=== PATIENT | male | born 1940 | race Caucasian/White ===

== ENCOUNTER 2016-10-13 11:54 | Outpatient (CLI) | payer MEDICARE, BC ==
[~2016-10-13] VITALS: Ht 180.3 cm; Wt 103.0 kg
[~2016-10-13 11:54] MED LIST: ASPIR-LOW81 MG PO; ASPIRIN 32325 MG/TAB PO; ASPIRIN 81M81 MG/TA2 PO; CEPHALEXIN500 M1 PO; COLESTID 1GM1 G PO; KETOROLAC10 MG; LISINOPRIL10 MG PO; LOPRESSOR 225 MG/TAB PO; LORTAB 5/500 501 TAB PO; NAPROXEN ER500 MG PO; NITROSTAT0.4 MG/TAB SL; NORCO 325 MG-7.1 TAB PO; NORVASC 5MG5 MG/TAB PO; OXYCONTIN 20MG20 MG; PRAVACHOL80 MG PO; PREDNISONE20 MG PO; PRILOSEC 20MG20 MG PO; PRINIVIL2.5 MG PO; TOPROL XL 50MG50 MG PO; TYLENOL 8 HR PO; TYLENOL ARTHRI650 M1 PO; ULTRAM 50MG TAB50 MG PO; UNKNOWN B/P MED; ZITHROMAX Z PA250 MG PO; ZOLOFT 50MG50 MG PO; ZOLOFT50 MG PO; bp med
[2016-10-13 12:21] VITALS: BP 144/77; PULSE 46
[2016-10-13 13:27] VITALS: BP 152/86; PULSE 48
== END 2016-10-13 14:51 | disposition home or self-care (01) ==
LOC: COL.RAD 11:54
DX: M51.26 Other intervertebral disc displacement, lumbar region (principal); M25.78 Osteophyte, vertebrae; M54.32 Sciatica, left side
CPT/HCPCS: Q9965

== ENCOUNTER → 2016-10-18 | Outpatient (CLI) | payer MEDICARE, BC | LOC: MHCPAIN 08:59 | DX: G89.29 Other chronic pain (principal); M47.27 Other spondylosis with radiculopathy, lumbosacral region; M96.1 Postlaminectomy syndrome, not elsewhere classified; M48.07 Spinal stenosis, lumbosacral region | CPT/HCPCS: G0463 ==

== ENCOUNTER → 2016-10-21 | Outpatient (CLI) | payer MEDICARE, BC | LOC: MHCPAIN 08:47 | DX: M47.27 Other spondylosis with radiculopathy, lumbosacral region (principal) | CPT/HCPCS: J1040; J1100; Q9967 ==

== ENCOUNTER → 2016-11-22 | Outpatient (CLI) | payer MEDICARE, BC | LOC: MHCPAIN 07:51 | DX: G89.29 Other chronic pain (principal); M47.817 Spondylosis without myelopathy or radiculopathy, lumbosacral region; M54.16 Radiculopathy, lumbar region; M53.3 Sacrococcygeal disorders, not elsewhere classified; M96.1 Postlaminectomy syndrome, not elsewhere classified | CPT/HCPCS: G0463 ==

== ENCOUNTER → 2016-11-25 | Outpatient (CLI) | payer MEDICARE, BC | LOC: MHCPAIN 09:44 | DX: M47.817 Spondylosis without myelopathy or radiculopathy, lumbosacral region (principal); M53.3 Sacrococcygeal disorders, not elsewhere classified | CPT/HCPCS: G0260; J1040; Q9967 ==

== ENCOUNTER → 2016-12-21 | Outpatient (CLI) | payer MEDICARE, BC | LOC: MHCPAIN 08:26 | DX: G89.29 Other chronic pain (principal); M47.817 Spondylosis without myelopathy or radiculopathy, lumbosacral region; M54.16 Radiculopathy, lumbar region; M53.3 Sacrococcygeal disorders, not elsewhere classified; M96.1 Postlaminectomy syndrome, not elsewhere classified; Z87.891 Personal history of nicotine dependence | CPT/HCPCS: G0463 ==

== ENCOUNTER → 2016-12-23 | Outpatient (CLI) | payer MEDICARE, BC | LOC: MHCPAIN 07:30 | DX: M41.06 Infantile idiopathic scoliosis, lumbar region (principal) ==

== ENCOUNTER → 2016-12-29 | Outpatient (CLI) | payer MEDICARE, BC | LOC: MHCPAIN 08:59 | DX: G89.29 Other chronic pain (principal); M47.817 Spondylosis without myelopathy or radiculopathy, lumbosacral region; M54.16 Radiculopathy, lumbar region; M53.3 Sacrococcygeal disorders, not elsewhere classified; M96.1 Postlaminectomy syndrome, not elsewhere classified | CPT/HCPCS: G0463 ==

== ENCOUNTER 2017-02-01 09:15 | Outpatient (RCR) | payer MEDICARE, BC | END 2017-02-03 13:55 | disposition still patient (30) | LOC: WSPT 09:15 | DX: M96.1 Postlaminectomy syndrome, not elsewhere classified (principal) | CPT/HCPCS: G8978-GP; G8979-GP ==

== ENCOUNTER 2017-11-01 07:49 | Inpatient (IN) | payer MEDICARE, BC ==
[~2017-11-01] VITALS: Ht 180.3 cm; Wt 102.5 kg
[2017-11-01] VITALS (485 sets, daily range): BP systolic 123–141; BP diastolic 80–87; PULSE 55–64; TEMP 97.4–97.9; O2SAT 78–100
[~2017-11-01 07:49] MED LIST changes: -PRINIVIL2.5 MG PO; +PRINIVIL20 MG PO; -TOPROL XL 50MG50 MG PO; +TYLENOL 500MG500 MG PO; -TYLENOL 8 HR PO
[2017-11-01 08:38] LABS: BASO % 0.4 % (0.0-2.0); EOS # 0.1 (0.0-0.7); EOS % 1.1 % (0-4.0); GRAN # 7.8 (1.4-6.5); GRAN % 71.3 % (42.2-75.2); HEMATOCRIT 41.1 % (42.0-52.0); HEMOGLOBIN 13.9 g/dl (13.5-18.0); LYMPH # 2.1 (1.2-3.4); LYMPH % 19.2 % (20.0-51.0); MEAN CELL VOLUME 85 fl (80.0-100.0); MEAN CORPUSCULAR HEMOGLOBIN 29 pg (27.0-31.0); MEAN CORPUSCULAR HGB CONC 34 g/dl (33.0-37.0); MEAN PLATELET VOLUME 8.2 fl (7.4-10.4); MONO # 0.9 (0.1-0.6); MONO % 7.8 % (1.7-9.3); PLATELET COUNT 204 K/mm3 (130-400); RED BLOOD COUNT 4.82 M/mm3 (4.20-5.60); REDCELL DISTRIBUTION WIDTH-CV 13.8 % (11.5-14.5)
[2017-11-01 08:40] LABS: ALANINE AMINOTRANSFERASE 22 U/L (21-72); ALBUMIN 4.2 gm/dL (3.5-5.0); ALKALINE PHOSPHATASE 77 U/L (50-136); ANION GAP 13 mmol/L (7-16); AST,SGOT 20 U/L (15-37); BILIRUBIN,TOTAL 0.9 mg/dL (0.0-1.0); BLOOD UREA NITROGEN 11 mg/dL (9-20); C-REACTIVE PROTEIN 4.3 mg/dL (0.0-0.9); CALCIUM 9.3 mg/dL (8.4-10.2); CARBON DIOXIDE 22 mmol/L (22-30); CHLORIDE 105 mmol/L (98-107); CREATININE, serum 0.77 mg/dL (0.66-1.25); GLUCOSE 117 mg/dL (74-106); LIPASE 53 U/L (23-300); POTASSIUM 3.9 mmol/L (3.4-5.0); SODIUM 140 mmol/L (137-145); TOTAL PROTEIN 7.7 gm/dL (6.4-8.2)
[2017-11-01 08:50] LABS: TROPONIN-I < 0.012 ng/mL (0.000-0.034)
[2017-11-01 10:09] LABS: COLLECTION METHOD CLEAN CATCH
[2017-11-01 10:20] LABS: MUCOUS Present /lpf; PH 5 (5-8); SQUAMOUS EPITHELIAL None Seen /hpf; URINE APPEARANCE Clear; URINE BACTERIA None Seen /hpf; URINE BILIRUBIN Negative (NEGATIVE); URINE BLOOD 2+ (NEGATIVE); URINE COLOR Yellow; URINE GLUCOSE Negative (NEGATIVE); URINE KETONE Negative (NEGATIVE); URINE LEUKOCYTE ESTERASE Negative (NEGATIVE); URINE NITRATE Negative (NEGATIVE); URINE PROTEIN(semi-quant) Negative (NEGATIVE); URINE UROBILINOGEN Negative (NEGATIVE)
[2017-11-02] VITALS (8 sets, daily range): BP systolic 133–146; BP diastolic 72–81; PULSE 56–71; TEMP 98; O2SAT 97–99
[2017-11-02 05:33] LABS: BASO % 0.6 % (0.0-2.0); EOS # 0.2 (0.0-0.7); EOS % 2.8 % (0-4.0); GRAN # 3.9 (1.4-6.5); GRAN % 56.6 % (42.2-75.2); HEMATOCRIT 38.8 % (42.0-52.0); HEMOGLOBIN 12.6 g/dl (13.5-18.0); LYMPH # 2.2 (1.2-3.4); LYMPH % 31.6 % (20.0-51.0); MEAN CELL VOLUME 89 fl (80.0-100.0); MEAN CORPUSCULAR HEMOGLOBIN 29 pg (27.0-31.0); MEAN CORPUSCULAR HGB CONC 33 g/dl (33.0-37.0); MEAN PLATELET VOLUME 8.4 fl (7.4-10.4); MONO # 0.6 (0.1-0.6); MONO % 8.1 % (1.7-9.3); PLATELET COUNT 183 K/mm3 (130-400); RED BLOOD COUNT 4.35 M/mm3 (4.20-5.60)
[2017-11-02 05:45] LABS: ALBUMIN 3.3 gm/dL (3.5-5.0); BILIRUBIN,TOTAL 0.6 mg/dL (0.0-1.0); CALCIUM 8.6 mg/dL (8.4-10.2); CREATININE, serum 0.77 mg/dL (0.66-1.25); POTASSIUM 3.7 mmol/L (3.4-5.0); TOTAL PROTEIN 6.2 gm/dL (6.4-8.2)
[2017-11-02] MEDS ORDERED: FLAGYL500 MG PO (12:27)
[2017-11-02] MEDS ORDERED: CIPRO 500MG TA500 MG PO (12:27)
== END 2017-11-02 14:15 | disposition home or self-care (01) | DRG 392 ==
LOC: COL.ER 07:49 → ICU 10:53
PROVIDERS: Emergency Medicine; Internal Medicine
DX: K57.32 Diverticulitis of large intestine without perforation or abscess without bleeding (principal); I25.10 Atherosclerotic heart disease of native coronary artery without angina pectoris; I10 Essential (primary) hypertension; R20.0 Anesthesia of skin; Z95.5 Presence of coronary angioplasty implant and graft; Z87.891 Personal history of nicotine dependence
CPT/HCPCS: 99223-AI; 99239; J0744; J1956; J2405; J3010; J7030

== ENCOUNTER 2018-08-24 13:09 | Inpatient (IN) | payer MEDICARE, BC ==
[~2018-08-24] VITALS: Ht 180.3 cm; Wt 103.3 kg
[~2018-08-24 13:09] MED LIST changes: +CIPRO 500MG TA500 MG PO; +FLAGYL500 MG PO
[2018-09-25] VITALS (10 sets, daily range): BP systolic 107–149; BP diastolic 54–86; PULSE 61–89; TEMP 97.1–98.2
[2018-09-25] MEDS ORDERED: OMEGA-3 1000 MG1 CAP PO (05:58)
--- NOTE | 2018-09-25 10:55 | NUR ---
PATIENT BACK IN ROOM 328 POST OP. VERY DROWSY. VSS. APPEARS TO BE COMFORTABLE. LTK DRESSING IS CD&I WITH AQUACEL AND TECHNOL BRACE INPLACE. TEDS & SCD'S TO BLE. POSITIVE PEDAL PULSES. LAZO TO DEPENDENT DRAINAGE WITH SMALL AMOUNTS OF CLEAR YELLOW URINE NOTED. IV FLUIDS INFUSING INTO LEFT WRIST IV. NO C/O N/V. LIQUIDS AT BEDSIDE. HEAD TO TOE WNL. FAMILY NOW AT BEDSIDE. ORIENTED TO ROOM. CALL LIGHT IN REACH.
--- NOTE | 2018-09-25 11:26 | NUR ---
LATOSHA and SW student met with the patient's , Yvette, to discuss discharge plan. The patient was sleeping. The patient lives in [place] with his . The patient's reports that the patient is independent with ADLs and has a walker. The patient's PCP is Dr. Stanley Coker and he receives his medications at either the [facility] or [facility]. The patient's reports no difficulties obtaining his meds. The patient's DPOA-HC is in EMR. The patient plans to return home with his upon discharge. The patient's reports that she believes the patient has outpatient therapy set up, but is not sure where it will be at. SW to follow up with the patient.
--- NOTE | 2018-09-25 21:00 | NUR ---
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 ASSESSMENT COMPLETE. VS STABLE. UP TO AMBULATE THIS SHIFT USING WALKER. TOLERATED WELL. TECHNOL BRACE IN PLACE WITH CLEAN, DRY AND INTACT AQUACELL DRESSING. CLEAR YELLOW URINE DRAINING TO LAZO. DENIES NEED FOR PAIN MEDICATION AT THIS TIME. ENCOURAGED TO CALL FOR QUESTIONS OR CONCERNS. VERBALIZES UNDERSTANDING. BED IN LOW POSITION. WHEELS LOCKED-CALL LIGHT WITHIN REACH. WILL CONTINUE TO MONITOR.
--- NOTE | 2018-09-26 04:07 | NUR ---
HAS SLEPT OFF AND ON THROUGHT THE NIGHT. RATING PAIN 6/10-ROXICODONE PER DR ORDER GIVEN. LAZO DRAINING CLEAR YELLOW URINE. TECHNOL BRACE REMOVED FROM LEFT LOWER EXTREMITY. ICE PACK APPLIED. DRESSING CLEAN DRY AND INTACT. IV INFUSING NS@75MLS. ENCOURAGED TO CALL FOR NEEDS. WILL CONTINUE TO MONITOR.
[2018-09-26 04:51] VITALS: BP 106/55; PULSE 65; TEMP 98.5
[2018-09-26 06:17] LABS: HEMATOCRIT 36.2 % (42.0-52.0)
[2018-09-26 07:00] VITALS: BP 110/67; PULSE 66; TEMP 97.3
--- NOTE | 2018-09-26 08:00 | NUR ---
PATIENT IS A&O. VSS. RATES PAIN IN LLE AT 3/10 AT REST. PATIENT REQUESTING PAIN MEDS CLOSER TO THERAPY TIMES. LTK DRESSING IS CD&I WITH AQUACEL. TEDS & SCD'S TO BLE. POSITIVE PEDAL PULSES TO BLE. STUDENT NURSE TO DC LAZO THIS AM AND GIVE MEDS. LAST DOSE OF IV ABX INFUSING. HEAD TO TOE ASSESSMENT WNL. NO OTHER NEEDS.
--- NOTE | 2018-09-26 10:36 | NUR ---
LATOSHA and LATOSHA student followed up with the patient about outpatient therapy. The patient confirmed that he plans to return home with his and that outpatient therapy has been set up at [facility]. No additional needs at this time.
[2018-09-26 11:05] VITALS: BP 119/62; PULSE 60; TEMP 98.6
[2018-09-26 15:56] VITALS: BP 112/51; PULSE 63; TEMP 98.1
--- NOTE | 2018-09-26 20:00 | NUR ---
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 ASSESSMENT COMPLETE. VS STABLE. SEEMS MORE CONFUSED THIS SHIFT COMPARED TO LAST. HE HAS TRIED TO GET UP TO BATHROOM SEVERAL TIMES SETTING OFF THE BED ALARM AND HAS URINATED IN A DRINKING CUP WELL. DRESSING TO LEFT KNEE IS CLEAN/DRY/INTACT. TECHNOL BRACE IS ON. PROVIDED WITH NEW ICE PACK. DENIES ANY CONCERNS AT THIS TIME. CALL LIGHT WITHIN REACH. BED IN LOW POSITION. WHEELS LOCKED. WILL MONITOR.
[2018-09-26 20:30] VITALS: BP 154/64; PULSE 66; TEMP 98.3
[2018-09-26 23:48] VITALS: BP 150/59; PULSE 61; TEMP 97.3
--- NOTE | 2018-09-27 04:47 | NUR ---
Patient has rested intermittently through the night, has been impulsive at times not using his call light and setting off the bed or chair alarm going to the bathroom. When staff arrives to room as alarm is going off patient is usually up ambulating without his walker. Reminded multiple times to use the call light and that he needs to be using his walker. Patient appears to have some difficulities with urgency to urinate and incontinence, as this is why he is usually getting up by himself. Fall precautions in place and reminded to use call light.
[2018-09-27 05:01] VITALS: BP 132/60; PULSE 56; TEMP 97.6
--- NOTE | 2018-09-27 06:30 | NUR ---
Reported on to NOEL Velázquez.
[2018-09-27 07:00] VITALS: BP 147/64; PULSE 59; TEMP 98.1
--- NOTE | 2018-09-27 07:00 | NUR ---
Awake, AOx4. INT Rt hand with no redness or swelling. SCD's/Edwin navarro on. VSS. Assessment as charted. C/O 01/10 sharp left knee pain.
--- NOTE | 2018-09-27 07:33 | NUR ---
Report from Dallas COHEN.
--- NOTE | 2018-09-27 07:34 | NUR ---
Roxycodone 10mg given, will reassess pain in 30 minutes/
[2018-09-27 07:35] LABS: HEMATOCRIT 38.8 % (42.0-52.0); HEMOGLOBIN 12.6 g/dl (13.5-18.0)
--- NOTE | 2018-09-27 08:05 | NUR ---
C/O 6/10 dull left knee pain. No further complaints.
--- NOTE | 2018-09-27 11:00 | NUR ---
Aquacell dressing removed from left knee, incision intact, well-approximated, with slight swelling. Applied steristrip and airstrip to left knee.
[2018-09-27 11:45] VITALS: BP 132/59; PULSE 71; TEMP 97.9
--- NOTE | 2018-09-27 12:13 | NUR ---
Reported off to NOEL Velázquez.
--- NOTE | 2018-09-27 12:35 | NUR ---
FAMILY INQUIRING ON HOW PATIENT CAN STAY MORE DAYS, WILL HAVE CASE MANAGEMENT FOLLOW UP. EXPLAINED NECESSITY VS CONVIENCE IN RECOVERY FROM KNEE REPLACEMENT. FAMILY WANTS TO TALK TO PHYSICAIN AND CASE MANAGEMENT. WILLIAM KEEN WILL COME LATER THIS PM TO RECHECK PATIENT,
--- NOTE | 2018-09-27 13:20 | NUR ---
CASE MANAGEMENT SPOKE WITH PATIENT AND FAMILY, PT WAS STANDING INDEPENDENTLY AT SIDE OF BED, 10 MINS LATER WHEN THERAPY ENTERED ROOM TO BRING PATIENT OUT FOR GROUP THERAPY PT STATING THAT HE CANT DO THERAPY. PAIN OF 03/13 OFFERED NORCO BUT PT REFUSED SAYING THAT "IT DOESNT DO ANYTHING." PATIENT WANTS TO STAY MORE DAYS. ROXICODONE 10 MG PO GIVEN Q4HR PER ORDERS. LAST DOSE @ 1200.
--- NOTE | 2018-09-27 13:34 | NUR ---
ICE PACK OFFERED AND PT REFUSED THIS AM. ICE PROVIDED TO PATIENT DURING PM THEARPY PT STATED IT WILL CAUSE MORE PROBLEMS, ENCOURAGED PT TO USE ICE TO HELP ALLIVIATE PAIN IN CONJUNTION WITH PAIN MEDS.
--- NOTE | 2018-09-27 15:36 | NUR ---
REPORT TO GAUDENCIO COHEN.
--- NOTE | 2018-09-27 15:40 | NUR ---
family assisting him to get out of bed and bed alarm sounding, entered room and assisting him into bathroom and voided qs, ambulated with slow steady gait, then back out of bathroom and back into bed, is oriented times 3 at this time
--- NOTE | 2018-09-27 16:22 | NUR ---
alert and oriented, c/o pain to left knee even while resting in bed, medicated with hydrocodone 7.5mg 2 tabs, is requesting to take a walk
[2018-09-27 16:30] VITALS: BP 142/61; PULSE 69; TEMP 99
--- NOTE | 2018-09-27 16:45 | NUR ---
entered room to assist him with walking in the hunt and now he has deicded he will wait, daughter at bedside
--- NOTE | 2018-09-27 17:50 | NUR ---
appears to be sleeping, in bed with lights off, eyes closed, resp quiet and easy, family at bedside
--- NOTE | 2018-09-27 18:58 | NUR ---
bedside shift report given to NOEL Alvarado and Fanny RN
--- NOTE | 2018-09-27 19:35 | NUR ---
Bed alarm sounding, patient sitting up on the edge of the bed attempting to get up to urinate. Patient's family stepped out of room to allow staff to assist. Patient had difficulities getting to a standing position with assist x 2 and walker infront of him. Patient assisted with standing and urinal positioned as patient started to urinate all over the floor. Assisted with cleaning up and patient assisted back into bed. Bed remains in a low position with bed alarm turned on and call light in reach. Patient's family is now back in the room and states someone will be staying at patient's bedside all night due to confusion.
--- NOTE | 2018-09-27 20:30 | NUR ---
Assessment completed. Patient is A&O x 4, states he knows he was confused last night and during the day, is very apologetic. Reassured patient that nursing staff knew he was confused and undertsood. VSS, on room air. Pain controlled with prn Carson at this time, discussed with family and patient that we were trying to avoid Oxycodone due to patient's previous confusion and there was prn Carson and Ultram available for pain control. Airstrip to left knee has a small amount of drainage noted. BLE yaquelin hose removed at this time and scds applied. Pedal pulses intact. Tolerating diet with no c/o nausea. Has some difficulities with frequency and incontinence with urinating, depends suggested to patient and was willing to try them. Patient was able to stand up better than he was an hour ago when he had difficulities. Ambulated approximately 100 feet out in the hallway with assist x 1 with walker and gait belt, gait steady. Family remains at bedside. Fall precautions in place.
--- NOTE | 2018-09-27 21:15 | NUR ---
Assisted patient to the bathroom with walker, gait continues to be steady. Reports the pain medication he was given an hour ago helped a lot. Assisted with repositioning LLE in bed and technol brace applied at this time. Multiple family members in room. Denies any concerns or needs.
[2018-09-27 21:25] VITALS: BP 137/68; PULSE 72; TEMP 98.3
--- NOTE | 2018-09-27 23:35 | NUR ---
Family notified this nurse that they are leaving for the night now that they feel the patient is more orientated and appears to be doing better than earlier. Patient at this time is resting in bed with eyes closed. Fall precautions remain in place.
[2018-09-27 23:47] VITALS: BP 126/71; PULSE 80; TEMP 98.1
--- NOTE | 2018-09-28 04:05 | NUR ---
Patient used call light to request assistance to the bathroom. Up with standby assist, patient was able to lift leg up and down out of the bed and back into the bed independently. Ambulated with standby assist with walker and gait belt, gait remains steady. Requested prn Madeline for left knee pain, does report pain is better than it was yesterday. Technol brace removed at this time from E. Denies any other concerns or needs.
[2018-09-28 04:45] VITALS: BP 116/61; PULSE 85; TEMP 98.6
--- NOTE | 2018-09-28 05:52 | NUR ---
Patient ambulated to the chair at this time with standby assist with walker, gait remains steady. Patient slept well until 0400 and has been up watching television since then. No confusion noted through the night, patient continues to report he feels better and knows he isn't "loopy" anymore. VSS. Pain has been controlled with prn Rosman, avoiding Oxycodone. Airstrip to left knee has a small amount of drainage noted, no increase through the shift. Denies any concerns or needs at this time. Chair alarm on patient and call light within reach.
[2018-09-28] MEDS ORDERED: ASPI325T6 PO (06:51)
[2018-09-28] MEDS ORDERED: SENOKOT S 50 MG1 TAB PO (06:52)
[2018-09-28] MEDS ORDERED: NORCO 325 MG-7.1 TAB PO (06:52)
--- NOTE | 2018-09-28 07:12 | NUR ---
bedside shift report received NOEL Alvarado
[2018-09-28 07:26] LABS: CALCIUM 8.8 mg/dL (8.4-10.2); CREATININE, serum 0.68 (0.66-1.25); POTASSIUM 3.5 mmol/L (3.4-5.0)
[2018-09-28 07:49] VITALS: BP 129/69; PULSE 85; TEMP 97.5
--- NOTE | 2018-09-28 08:35 | NUR ---
resting in bed after breakfast, full assessment completed, see interventions for further info, denies need for pain pills at this time, airstrip dressing removed with scant amount drainage and new airstrip placed
--- NOTE | 2018-09-28 09:30 | NUR ---
ambulated out to hunt with physical therapy for group exercises
--- NOTE | 2018-09-28 10:31 | NUR ---
The patient is to discharge back home with his today, 09/28, with outpatient therapy at [facility]. SW met with the patient to present and explain the IM form. The patient verbalized understanding, signed, and he was provided a copy. No additional needs at this time.
--- NOTE | 2018-09-28 11:00 | NUR ---
son here for discharge, discharge instructions given to patient and his son and verbalizes understanding
--- NOTE | 2018-09-28 11:15 | NUR ---
discharged per WC
== END 2018-09-28 11:15 | disposition home or self-care (01) | DRG 470 ==
LOC: JCC 09-25 05:11
PROVIDERS: ADMIT Orthopaedic Surgery
PROC: 0SRD0J9 Replacement of Left Knee Joint with Synthetic Substitute, Cemented, Open Approach (ICD-10-PCS; principal; 2018-09-25 07:30)
DX: M17.12 Unilateral primary osteoarthritis, left knee (principal); G89.18 Other acute postprocedural pain; R41.0 Disorientation, unspecified; I25.2 Old myocardial infarction; E78.00 Pure hypercholesterolemia, unspecified; I10 Essential (primary) hypertension; G47.30 Sleep apnea, unspecified; Z87.891 Personal history of nicotine dependence
CPT/HCPCS: A4314; A9284; C1713; C1776; J1100; J1170; J1885; J2250; J2270; J2405; J2704; J3010; J7030; J7120

== ENCOUNTER → 2018-09-18 | Outpatient (CLI) | payer MEDICARE, BC | LOC: COL.LAB 11:24 | DX: Z01.812 Encounter for preprocedural laboratory examination (principal) ==

== ENCOUNTER 2018-10-09 19:45 | Emergency (ER) | payer MEDICARE, BC ==
[~2018-10-09] VITALS: Ht 180.3 cm; Wt 103.6 kg
[~2018-10-09 19:45] MED LIST changes: +ASPI325T6 PO; +OMEGA-3 1000 MG1 CAP PO; +SENOKOT S 50 MG1 TAB PO
[2018-10-09 19:51] VITALS: TEMP 98.4
[2018-10-09 20:42] LABS: BASO # 0.1 (0.0-0.2); BASO % 0.5 % (0.0-2.0); EOS # 0.2 (0.0-0.7); EOS % 2.1 % (0-4.0); GRAN # 6.9 (1.4-6.5); HEMATOCRIT 40.2 % (42.0-52.0); HEMOGLOBIN 13.1 g/dl (13.5-18.0); LYMPH # 2.4 (1.2-3.4); LYMPH % 22.9 % (20.0-51.0); MEAN CELL VOLUME 86 fl (80.0-100.0); MEAN CORPUSCULAR HEMOGLOBIN 28 pg (27.0-31.0); MEAN CORPUSCULAR HGB CONC 33 g/dl (33.0-37.0); MEAN PLATELET VOLUME 8.1 fl (7.4-10.4); MONO # 0.7 (0.1-0.6); MONO % 7.1 % (1.7-9.3); PLATELET COUNT 439 K/mm3 (130-400); REDCELL DISTRIBUTION WIDTH-CV 14.2 % (11.5-14.5)
[2018-10-09 20:55] LABS: ALANINE AMINOTRANSFERASE 9 U/L (21-72); ALBUMIN 3.8 gm/dL (3.5-5.0); ALKALINE PHOSPHATASE 73 U/L (50-136); ANION GAP 9 mmol/L (7-16); AST,SGOT 21 U/L (15-37); BILIRUBIN,TOTAL 0.7 mg/dL (0.0-1.0); BLOOD UREA NITROGEN 17 mg/dL (9-20); C-REACTIVE PROTEIN 5.6 mg/dL (0.0-0.9); CALCIUM 9.4 mg/dL (8.4-10.2); CARBON DIOXIDE 28 mmol/L (22-30); CHLORIDE 100 mmol/L (98-107); CREATININE, serum 0.83 (0.66-1.25); GLUCOSE 127 mg/dL (74-106); POTASSIUM 4.3 mmol/L (3.4-5.0); SODIUM 138 mmol/L (137-145); TOTAL PROTEIN 6.9 gm/dL (6.4-8.2)
[2018-10-09 21:05] LABS: TROPONIN-I < 0.012 ng/mL (0.000-0.035)
[2018-10-09] MEDS ORDERED: MOTRIN 800800 MG/TAB PO (21:16)
[2018-10-09] MEDS ORDERED: TYLENOL 500MG500 MG PO (21:17)
[2018-10-09] MEDS ORDERED: ANTIVERT 25MG25 MG PO (21:45)
[2018-10-09 22:28] VITALS: BP 144/79; PULSE 77
== END 2018-10-09 22:31 | disposition home or self-care (01) ==
LOC: COL.ER 19:45
PROVIDERS: Emergency Medicine
DX: R42 Dizziness and giddiness (principal); I25.10 Atherosclerotic heart disease of native coronary artery without angina pectoris; E78.5 Hyperlipidemia, unspecified; I10 Essential (primary) hypertension; Z95.5 Presence of coronary angioplasty implant and graft; Z96.652 Presence of left artificial knee joint
CPT/HCPCS: J2060; J2405; J3010; J7030

== ENCOUNTER → 2021-01-02 | Outpatient (CLI) | payer MEDICARE, BC ==
[~2021-01-02] MED LIST changes: +ANTIVERT 25MG25 MG PO; +MOTRIN 800800 MG/TAB PO
== END ==
LOC: COL.VAS 14:45
DX: I65.23 Occlusion and stenosis of bilateral carotid arteries (principal)